=== PATIENT | female | born 1960 | race Caucasian/White ===

== ENCOUNTER 2021-09-28 22:34 | Inpatient (IN) | payer OTHER, SELFPAY ==
--- NOTE | ~2021-09-28 | XR_ITS ---
EXAMINATION: XR CHEST CLINICAL INFORMATION: Syncopal episode. COMPARISON: None TECHNIQUE: AP view of the chest was obtained. FINDINGS: Normal cardiomediastinal silhouette. Low lung volumes with mild asymmetric elevation of the right hemidiaphragm and right basilar subsegmental atelectasis. Otherwise, clear lungs. No pleural effusions or pneumothorax. No acute osseous findings. XR/XR chest 1V IMPRESSION: Mild subsegmental atelectasis of the right lung base.
[2021-09-28 22:43] VITALS: BP 115/90; BP 147/61; PULSE 102; PULSE 108; RESP 18; TEMP 37.2; O2SAT 95; O2SAT 96; BMI 35.2
[2021-09-28 23:39] LABS: Basophils Percent Auto 0.3 % (0-2); Eosinophils Absolute Auto 0.1 X10*3/uL (0.0-0.4); Eosinophils Percent Auto 0.8 % (0-4); Hematocrit 32.4 % (37.0-47.0); Hemoglobin 10.7 g/dl (12.0-16.0); Imm Gran Abs Auto 0.06 X10*3/uL (0.00-0.03); Imm Gran Pct Auto 0.5 % (0.0-0.4); Lymphocytes Absolute Auto 2.7 X10*3/uL (1.2-4.9); Lymphocytes Percent Auto 23.3 % (20-40); MANUAL DIFF FLAG NO; Mean Corpuscular Hemoglobin 30.6 pg (27.0-33.0); Mean Corpuscular Volume 92.6 fL (80.0-98.0); Mean Platelet Volume 9.5 fL (9.4-12.3); Monocytes Absolute Auto 0.8 X10*3/uL (0.1-1.2); Monocytes Percent Auto 7.2 % (2-11); Neutrophils Percent Auto 67.9 % (45-73); Platelet Count 232 X10*3/uL (160-400); Red Cell Distribution Width 12.6 % (11.0-16.0); White Blood Count 11.7 X10*3/uL (4.8-10.8)
[2021-09-28 23:55] LABS: Anion Gap 13 (12-20); Blood Urea Nitrogen 46 mg/dL (9-16); Calcium 8.3 mg/dL (8.4-10.2); Carbon Dioxide 22 mmol/L (22-29); Chloride 109 mmol/L (96-108); Creatinine Clr Calc Pharmacy 104.9; Estimated Glomerular Filt Rate > 60; Glucose Random 118 mg/dL (60-115); Potassium 4.4 mmol/L (3.3-5.1); Sodium 140 mmol/L (135-145)
--- NOTE | 2021-09-29 | ECG_ITS ---
Test Reason : SYNCOPE Blood Pressure : / mmHG Vent. Rate : 104 BPM Atrial Rate : 104 BPM P-R Int : 158 ms QRS Dur : 090 ms QT Int : 364 ms P-R-T Axes : 042 -08 015 degrees QTc Int : 478 ms Sinus tachycardia Otherwise normal ECG No previous ECGs available Referred By: Grace Floyd Electronically Signed By:MARRY OTT
[2021-09-29 00:01] LABS: Troponin-I High Sensitivity 21.6 ng/L (<3.5-17.0)
[2021-09-29 00:58] VITALS: BP 100/58; PULSE 102; RESP 25; TEMP 37; O2SAT 96
--- NOTE | 2021-09-29 01:33 | ED.GENADULT ---
HPI - General Adult General Chief complaint: Syncope Stated complaint: SYNCOPAL EPISODE Time Seen by Provider: 09/29/21 00:03 Source: patient and family (Daughter, Leslie) Mode of arrival: EMS Limitations: language barrier (Azerbaijani speaking, hourly sign language interpreter used) History of Present Illness HPI narrative: 7-year-old female who presents emergency department for evaluation of syncopal episode. The patient reports that she was having acid reflux symptoms all day. She states she is having a burning sensation in her upper abdomen in her chest. She states she would also have hot flash like sensations. She felt hot and cold throughout the day. She states that prior to coming to the emergency department she developed nausea and went to the bathroom to vomit. She states she had 1 episode of vomiting, she felt very hot and lightheaded and she tried to get back to her bedroom and had a syncopal episode. The apparently found the patient on the floor altered for approximately 1-2 minutes, the patient then woke up and was slightly confused but then return to normal. The patient states that she has not been feeling well over the past week, she has had some shortness of breath but denied chest pain, neck pain, jaw pain or arm pain. The patient denied fever, chills, cough, rhinorrhea, sore throat, abdominal pain, change in bowel movements. She did get her Pfizer 3rd shot booster vaccination yesterday. At the time of my evaluation she had no complaints. Related Data Allergies Allergy/AdvReac Type Severity Reaction Status Date / Time No Known Allergies Allergy Verified 09/29/21 01:32 Review of Systems Review of Systems: Yes all other systems are reviewed and are negative [facility] Past Medical History [facility] Narrative: Past medical history high cholesterol, hypothyroidism and seizure disorder. Past surgical history: None. Social history: She smokes 1 cigarette per week. She denies alcohol use. She denies drug use. Social History Social History Advance Directives: No Advance Directives Information Provided: No Physical Exam Vital Signs: Vital Signs: Last Vital Signs Temp 98.5 F 09/29/21 03:30 Pulse 99 09/29/21 03:30 Resp 23 H 09/29/21 03:30 BP 116/65 09/29/21 03:30 Pulse Ox 98 09/29/21 03:35 BMI result Body Mass Index 35.2 Const: Other: Very pleasant and cooperative female patient, answers all questions appropriately, does not appear to be in distress. HENMT: Head: Yes normal to inspection, Yes normocephalic and Yes atraumatic Ears: external ears normal General nose exam: Normal external nose present Face and sinus: Yes normal facial exam Mouth: Normal oral and palatal mucosa present Throat: Yes posterior oropharynx normal Eyes: General: appearance normal, both eyes and all related structures Pupils: Equal, round and reactive pupils present Neck: Neck: Yes normal visual inspection, Yes no lymphadenopathy, Yes trachea midline and Yes supple Chest: Chest palpation & inspection: normal inspection of the chest and normal palpation of entire chest wall Resp: Effort & Inspection: normal respiratory effort and able to speak in complete sentences Auscultation: clear to auscultation bilaterally Cardio: Rate: regular rate Rhythm: regular rhythm Heart sounds: S1 normal heart sound present, S2 normal heart sound present and no murmurs GI: Inspection: Yes normal to inspection Palpation (GI): Soft to palpation, nontender and no guarding Auscultation: normal bowel sounds : General: Yes no CVA tenderness Back/Spine/Pelvis: Back: no CVA tenderness Skin: General skin exam: no rashes or lesions noted Neuro: Cranial nerves: Yes CN's II-XII intact bilaterally and Yes Equal, round and reactive pupils present Cognition (Neuro): normal cognition Motor exam (neuro): 5/5 motor strength present throughout Extrem: General: Yes normal to inspection Psych: Appearance: grossly normal Speech and movement: Normal speech and movement present Affect: normal affect Attitude: cooperative Thought process: Normal thought process present Thought content: Normal thought content present Course Course Course Narrative: 61-year-old female who presents emergency department for evaluation syncopal episode that occurred after she vomited at home. Patient states that she has been feeling sick for 1 week with shortness of breath. She also had heartburn like symptoms yesterday. Vital signs revealed elevated blood pressure of 146/61, elevated pulse of 102, respiratory rate was initially 18, she did have a documented respiratory rate of 25, O2 saturation was 95% on room air. Physical examination was unremarkable. 0139: Laboratory evaluation: WBC elevated 11,700, H&H were low 10.7 and 32.2, chloride was elevated 109, BUN is elevated 46 with a normal creatinine of 0.7. Troponin was elevated 21.6. Twelve EKG revealed a sinus tachycardia with a rate of 104 otherwise was unremarkable. Chest x-ray revealed atelectasis at the right base. Laboratory evaluation is consistent with mild anemia and dehydration. Patient's syncopal episode is most likely vasovagal. The patient did have a mildly elevated high sensitivity troponin. order a D-dimer, PT/INR and repeat troponin for 2:30 a.m.. Patient will be kept on a monitoring manager. 0344: The patient did have a greater than 50% increase in her high sensitivity troponin I at 3:00 a.m.. Initial was 21.6, repeat was 35.3. At this time I am concerned that the patient's shortness of breath dyspnea on exertion syncope may be secondary to coronary artery disease. I will discuss the patient's presentation with the covering hospitalist for admission and further evaluation. 0507: I discuss the patient's presentation with the covering hospitalist, Dr. Toussaint who agrees with admission and will evaluate the patient in the emergency department. Medical Decision Making Lab Data Result diagrams: 09/28/21 23:26 09/28/21 23:26 Labs: Lab Results 09/28/21 09/28/21 09/28/21 Range/Units 23:26 23:26 23:26 WBC 11.7 H (4.8-10.8) X10*3/uL RBC 3.50 L (4.20-5.50) X10*6/uL Hgb 10.7 L (12.0-16.0) g/dl Hct 32.4 L (37.0-47.0) % MCV 92.6 (80.0-98.0) fL MCH 30.6 (27.0-33.0) pg MCHC 33.0 (31.0-35.0) g/dl RDW 12.6 (11.0-16.0) % Plt Count 232 (160-400) X10*3/uL MPV 9.5 (9.4-12.3) fL Immature Gran % (Auto) 0.5 H (0.0-0.4) % Neut % (Auto) 67.9 (45-73) % Lymph % (Auto) 23.3 (20-40) % [place] % (Auto) 7.2 (2-11) % Eos % (Auto) 0.8 (0-4) % Baso % (Auto) 0.3 (0-2) % Lymph # (Auto) 2.7 (1.2-4.9) X10*3/uL [place] # (Auto) 0.8 (0.1-1.2) X10*3/uL Eos # (Auto) 0.1 (0.0-0.4) X10*3/uL Baso # (Auto) 0.0 (0.0-0.2) X10*3/uL Abs Immat Gran (auto) 0.06 H (0.00-0.03) X10*3/uL Absolute Neuts (auto) 8.0 (2.0-8.3) x10*3/uL Absolute Nucleated RBC 0.000 (0.0-0.012) X10*3/uL Nucleated RBC % (auto) 0.0 (0.0-0.2) /100WBC PT (9.9-13.0) SEC INR (0.9-1.1) APTT (24.1-38.0) SEC D-Dimer High Sensitivty NG/ML Sodium 140 (135-145) mmol/L Potassium 4.4 (3.3-5.1) mmol/L Chloride 109 H (96-108) mmol/L Carbon Dioxide 22 (22-29) mmol/L Anion Gap 13 (12-20) BUN 46 H (9-16) mg/dL Creatinine 0.70 (0.5-1.4) mg/dL Estim Creat Clear Calc 104.9 Estimated GFR > 60 Random Glucose 118 H (60-115) mg/dL Calcium 8.3 L (8.4-10.2) mg/dL Troponin I High Sens 21.6 H (<3.5-17.0) ng/L 09/29/21 09/29/21 Range/Units 02:38 02:38 WBC (4.8-10.8) X10*3/uL RBC (4.20-5.50) X10*6/uL Hgb (12.0-16.0) g/dl Hct (37.0-47.0) % MCV (80.0-98.0) fL MCH (27.0-33.0) pg MCHC (31.0-35.0) g/dl RDW (11.0-16.0) % Plt Count (160-400) X10*3/uL MPV (9.4-12.3) fL Immature Gran % (Auto) (0.0-0.4) % Neut % (Auto) (45-73) % Lymph % (Auto) (20-40) % [place] % (Auto) (2-11) % Eos % (Auto) (0-4) % Baso % (Auto) (0-2) % Lymph # (Auto) (1.2-4.9) X10*3/uL [place] # (Auto) (0.1-1.2) X10*3/uL Eos # (Auto) (0.0-0.4) X10*3/uL Baso # (Auto) (0.0-0.2) X10*3/uL Abs Immat Gran (auto) (0.00-0.03) X10*3/uL Absolute Neuts (auto) (2.0-8.3) x10*3/uL Absolute Nucleated RBC (0.0-0.012) X10*3/uL Nucleated RBC % (auto) (0.0-0.2) /100WBC PT 12.4 (9.9-13.0) SEC INR 1.1 (0.9-1.1) APTT 28.0 (24.1-38.0) SEC D-Dimer High Sensitivty 173 NG/ML Sodium (135-145) mmol/L Potassium (3.3-5.1) mmol/L Chloride (96-108) mmol/L Carbon Dioxide (22-29) mmol/L Anion Gap (12-20) BUN (9-16) mg/dL Creatinine (0.5-1.4) mg/dL Estim Creat Clear Calc Estimated GFR Random Glucose (60-115) mg/dL Calcium (8.4-10.2) mg/dL Troponin I High Sens 35.3 H D (<3.5-17.0) ng/L ECG Data Attestation: I personally reviewed and interpreted this ECG as follows: Interpretation: 2333 : Sinus tachycardia with a rate of 104, normal MS interval QRS duration slightly prolonged QTC interval 470 milliseconds, no ST segment elevation, no ST segment depression, inverted T-wave in lead 3, no PACs, no PVCs, except for the sinus tachycardia this is a normal EKG. Discharge Plan Discharge Patient Disposition: Admitted As Inpatient
[2021-09-29] MEDS: 0.9 % Sodium Chloride 1,000 ML 999 ML IV (02:06)
[2021-09-29 02:58] LABS: INTERNATIONAL NORM RATIO 1.1 (0.9-1.1); Prothrombin Time 12.4 SEC (9.9-13.0)
[2021-09-29 03:00] LABS: D Dimer High Sensitivity 173 NG/ML
[2021-09-29 03:18] LABS: Troponin-I High Sensitivity 35.3 ng/L (<3.5-17.0)
[2021-09-29 03:30] VITALS: BP 116/65; PULSE 99; RESP 23; TEMP 36.9; O2SAT 97
--- NOTE | 2021-09-29 03:32 | PC.NURSE ---
patient has elevated second trop notified
[2021-09-29 03:35] VITALS: O2SAT 98
[2021-09-29] MEDS: Aspirin 325 MG TABLET PO (03:51)
--- NOTE | 2021-09-29 05:25 | PC.NURSE ---
Daughter (NAGA) phone number [phone], patient is sami speaking only
--- NOTE | 2021-09-29 05:30 | P.HPHOSP_ITS ---
History of Present Illness Date of Service: 09/29/21 Chief Complaint: syncope This 61-year-old female past medical history of hypothyroidism, seizure disorder, who presents to the hospital with complaints of syncopal episode. Patient is Khmer speaking and history is obtained with the help of her daughter at bedside. Patient reports that she felt nauseous, diaphoretic, around to the bathroom, vomited, again felt very hot and diaphoretic, and immediately after had a syncopal episode that lasted few seconds. When she came about she was not confused but her family noticed that she was very pale. Patient has also had intermittent midsternal chest pain, pressure-like, mild, nonradiating, occurs spontaneously and resolved spontaneously. Today she had midsternal chest pain that she felt in her back as well although the pain in her back is reproducible with movement. She denies any fever no chills, no palpitations, she reports intermittent shortness of breath on exertion, he has no cough, no abdominal pain, no diarrhea constipation comminuted in his symptoms and no lower extremity edema. On arrival to the ED found to have temp of 98.9?, heart rate of 102, respiratory rate 18, blood pressure 147/61, satting 95% on room air Labs are significant for WBC count 11.7, initial troponin of 21.6 increased to 35.3, chest xray showed subsegmental atelectasis of right lung base Patient will be admitted for further management Review of Systems Review of Systems: Yes all other systems are reviewed and are negative [facility] Medical History (Updated 09/29/21 @ 05:40 by Emmanuelle Toussaint MD) Hyperlipidemia Hypothyroidism Seizure disorder Family History (Updated 09/29/21 @ 05:40 by Emmanuelle Toussaint MD) Mother Coronary artery disease Brother Coronary artery disease Surgical History (Updated 09/29/21 @ 05:40 by Emmanuelle Toussaint MD) No pertinent past surgical history Social History Advance Directives: No Advance Directives Information Provided: No Meds Allergies Allergy/AdvReac Type Severity Reaction Status Date / Time No Known Allergies Allergy Verified 09/29/21 01:32 Home Medications Medication Instructions Recorded Confirmed Last Taken Type albuterol sulfate 90 mcg/actuation INHALATION 09/29/21 09/29/21 09/28/21 History aerosol inhaler carbamazepine 200 mg tablet 200 mg PO 09/29/21 09/28/21 History levothyroxine 100 mcg tablet 1 tab PO DAILY 09/29/21 09/29/21 09/28/21 History pravastatin 80 mg tablet 1 tab PO DAILY 09/29/21 09/29/21 09/28/21 History Physical Exam Vital Signs and Narrative: Vital Signs: Last Vital Signs Temp 98.5 F 09/29/21 03:30 Pulse 99 09/29/21 03:30 Resp 23 H 09/29/21 03:30 BP 116/65 09/29/21 03:30 Pulse Ox 98 09/29/21 03:35 BMI result Body Mass Index 35.2 Const: General: cooperative and no acute distress Orientation/consciousness: patient oriented x3 Eyes: General: appearance normal, both eyes and all related structures Resp: Other: No reproducible chest wall tenderness Effort & Inspection: normal respiratory effort Auscultation: clear to auscultation bilaterally Cardio: Rate: regular rate Rhythm: regular rhythm GI: Palpation (GI): Soft to palpation Auscultation: normal bowel sounds Skin: General skin exam: no rashes or lesions noted Neuro: General: patient oriented x3 Cognition (Neuro): normal cognition Extrem: General: Yes normal to inspection and Yes no pedal edema Results Labs CBC and Chem 7: 09/28/21 23:26 09/28/21 23:26 Labs: Laboratory Results - last 24 hr 09/28/21 09/28/21 09/28/21 23:26 23:26 23:26 MCV 92.6 MCH 30.6 MCHC 33.0 RDW 12.6 Plt Count 232 MPV 9.5 Immature Gran % (Auto) 0.5 H Neut % (Auto) 67.9 Lymph % (Auto) 23.3 [place] % (Auto) 7.2 Eos % (Auto) 0.8 Baso % (Auto) 0.3 Lymph # (Auto) 2.7 [place] # (Auto) 0.8 Eos # (Auto) 0.1 Baso # (Auto) 0.0 Abs Immat Gran (auto) 0.06 H Absolute Neuts (auto) 8.0 Absolute Nucleated RBC 0.000 Nucleated RBC % (auto) 0.0 PT INR APTT D-Dimer High Sensitivty Anion Gap 13 Estim Creat Clear Calc 104.9 Estimated GFR > 60 Random Glucose 118 H Calcium 8.3 L Troponin I High Sens 21.6 H 09/29/21 09/29/21 02:38 02:38 MCV MCH MCHC RDW Plt Count MPV Immature Gran % (Auto) Neut % (Auto) Lymph % (Auto) [place] % (Auto) Eos % (Auto) Baso % (Auto) Lymph # (Auto) [place] # (Auto) Eos # (Auto) Baso # (Auto) Abs Immat Gran (auto) Absolute Neuts (auto) Absolute Nucleated RBC Nucleated RBC % (auto) PT 12.4 INR 1.1 APTT 28.0 D-Dimer High Sensitivty 173 Anion Gap Estim Creat Clear Calc Estimated GFR Random Glucose Calcium Troponin I High Sens 35.3 H D Imaging Radiologist's Impressions: Impressions Chest X-Ray 09/28/21 23:52 IMPRESSION: Mild subsegmental atelectasis of the right lung base. Assessment and Plan (1) Syncope: Status: Acute (2) Chest pain: Status: Acute This is a 61-year-old female with past medical history of hypothyroidism, seizure disorder and hyperlipidemia presents the hospital syncopal episode # syncope - most likely vasovagal from the description, - had prodromal symptoms - will obtain orthostatic vitals - monitor on telemetry - echocardiogram # chest pain - possibly cardia - does have elevated troponin - will trend troponin, obtain echocardiogram, and consult Cardiology - admit to telemetry # dyspnea - no evidence of volume overload on exam - chest x-ray no - no pneumonia - will obtain BNP - echocardiogram # have seizure disorder - pending review of her seizure medication # hyperlipidemia - continue statin # hypothyroidism - continue levothyroxine DVT prophylaxis: Lovenox Quality Stroke Does the patient have a stroke diagnosis?: No VTE Prior VTE?: No VTE Risk Level:: Medical - moderate - high VTE Device Contraindication: Treatment Not Indicated VTE Drug Contraindication: N/A - Med Ordered
[2021-09-29] MEDS: Enoxaparin Sodium 40 MG/0.4 ML SYRINGE SUBCUT (05:58)
[2021-09-29 06:18] LABS: COVID-19 Test Negative (Negative)
[2021-09-29 07:28] LABS: MANUAL DIFF FLAG NO
[2021-09-29 07:30] LABS: Basophils Percent Auto 0.2 % (0-2); Eosinophils Percent Auto 0.4 % (0-4); Hematocrit 29.7 % (37.0-47.0); Hemoglobin 9.9 g/dl (12.0-16.0); Imm Gran Abs Auto 0.05 X10*3/uL (0.00-0.03); Imm Gran Pct Auto 0.5 % (0.0-0.4); Lymphocytes Absolute Auto 3.6 X10*3/uL (1.2-4.9); Lymphocytes Percent Auto 38.1 % (20-40); Mean Corpuscular HGB Conc 33.3 g/dl (31.0-35.0); Mean Corpuscular Hemoglobin 30.4 pg (27.0-33.0); Mean Corpuscular Volume 91.1 fL (80.0-98.0); Mean Platelet Volume 9.6 fL (9.4-12.3); Monocytes Absolute Auto 0.6 X10*3/uL (0.1-1.2); Monocytes Percent Auto 6.2 % (2-11); Neutrophils Absolute Auto 5.2 x10*3/uL (2.0-8.3); Neutrophils Percent Auto 54.6 % (45-73); Platelet Count 225 X10*3/uL (160-400); Red Blood Count 3.26 X10*6/uL (4.20-5.50); Red Cell Distribution Width 12.7 % (11.0-16.0); White Blood Count 9.5 X10*3/uL (4.8-10.8)
[2021-09-29 07:46] LABS: Anion Gap 11 (12-20); Blood Urea Nitrogen 36 mg/dL (9-16); Calcium 8.1 mg/dL (8.4-10.2); Carbon Dioxide 21 mmol/L (22-29); Chloride 112 mmol/L (96-108); Creatinine Clr Calc Pharmacy 116.5; Estimated Glomerular Filt Rate > 60; Glucose Random 114 mg/dL (60-115); Potassium 4.1 mmol/L (3.3-5.1); Sodium 140 mmol/L (135-145)
[2021-09-29 07:51] LABS: B Type Natriuretic Peptide 14 pg/mL (<100); Troponin-I High Sensitivity 26.7 ng/L (<3.5-17.0)
--- NOTE | 2021-09-29 08:13 | PM.EVENT ---
Event Note Date of Service: 09/29/21 Event Note: patient already seen by hospital team this morning sa physical exam: Unchanged assessment and plan coordinated in H&P Cardio evaluation
[2021-09-29] MEDS: 0.9 % Sodium Chloride Flush 3 ML SYRINGE IVFLUSH (09:20)
[2021-09-29] MEDS: Levothyroxine Sodium 100 MCG TABLET PO (09:20)
[2021-09-29 09:22] VITALS: BP 137/69; PULSE 97; RESP 16; O2SAT 95
--- NOTE | 2021-09-29 09:34 | PHA.MEDREC ---
MED REC COMPLETE NO ISSUES Pharmacy Consult ? Medication Reconciliation Pharmacy has completed the medication reconciliation.
--- NOTE | 2021-09-29 12:01 | P.CONCA_ITS ---
History of Present Illness History of Present Illness Date of Service: 09/29/21 Requesting physician: Emmanuelle Toussaint Chief complaint: Acute coronary syndrome, syncope Narrative: I was requested to see Regla in cardiology consultation today for syncope. She is a pleasant but Togolese speaking woman, history obtained at bedside with her son who is an excellent furnace hand. If line certified furnace hand. Patient was in usual state of health yesterday, was walking up the stairs and suddenly developed shortness of breath and retrosternal chest pressure radiating to the back. Then she felt nauseous went to the bathroom felt very warm, she vomited and had a bowel movement. She subsequently was not feeling well and started walking towards the room and and then she passed out. She did hit the wall, but says she remembers actually not feeling well and feeling lightheaded was trying to get to the bed. The was downstairs heard the commotion and ran out. She had lost consciousness although for only few seconds and noted that she was pale. She was therefore brought to the emergency room. Since being here she has had no recurrent retrosternal chest pressure. Her initial troponin is minimally elevated and subsequently justine less than 50% but still elevated. Third troponin as down trended. She was noted to be low blood pressure in the nighttime. However blood pressure on presentation was elevated. Her blood pressure currently stable with heart rate in 90s to 100 with minimal exertion. She has had no recurrent chest pain. Her D-dimer was 173. Her initial EKG shows sinus tachycardia without acute changes. She has never had any cardiac issues in the past and has never had syncope in the past. She has not had any exertional chest pain or evidence of myocardial infarction or coronary artery disease in past. 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 Review of Systems Constitutional: Constitutional: Reports no additional constitutional complaints Eyes: Eyes: Reports no additional eye complaints Cardiovascular: Cardiovascular: Reports chest pain with activity, Denies leg edema, Reports lightheadedness, Reports Loss of Consciousness, Denies palpitations and Reports dyspnea on exertion Respiratory: Respiratory: Reports no additional respiratory complaints and Reports dyspnea on exertion Gastrointestinal: Gastrointestinal: Reports no additional gastrointestinal complaints Genitourinary: Genitourinary: Reports no additional female genitourinary complaints Musculoskeletal: Musculoskeletal: Reports no additional musculoskeletal complaints Integumentary/Breasts: Skin/Breast: Reports system reviewed and no additional complaints, except as docu Neurologic: Reports system reviewed and no additional complaints, except as documented Psychiatric: Psychiatric: Reports no additional psychiatric complaints Endocrine: Endocrine: Reports no additional endocrine complaints and Denies palpitations Hematologic/Lymphatic: Hematologic/Lymphatic: Reports no additional hematologic/lymphatic complaints Allergic/Immunologic: Allergic/Immunologic: Reports no additional allergic/immunologic complaints [facility] Past Medical History Medical History (Updated 09/29/21 @ 12:08 by Morales Clements MD) Hyperlipidemia Hypothyroidism Seizure disorder Family History Family History (Updated 09/29/21 @ 05:40 by Emmanuelle Toussaint MD) Mother Coronary artery disease Brother Coronary artery disease Surgical History Surgical History (Updated 09/29/21 @ 05:40 by Emmanuelle Toussaint MD) No pertinent past surgical history Social History Social History Advance Directives: No Advance Directives Information Provided: No Meds Allergies Allergy/AdvReac Type Severity Reaction Status Date / Time No Known Allergies Allergy Verified 09/29/21 01:32 Active Medications: Current Medications Acetaminophen (Acetaminophen 325 Mg Tablet) 650 mg PO Q6H PRN PRN Reason: Pain, Mild (Pain Scale 1-3) Docusate Sodium (Docusate Sodium 100 Mg Capsule) 100 mg PO DAILY PRN PRN Reason: Constipation Enoxaparin Sodium (Enoxaparin Sodium 40 Mg/0.4 Ml Syringe) 40 mg SUBCUT Q24H [facility] Last Admin: 09/29/21 05:58 Dose: 40 mg Documented by: Levothyroxine Sodium (Levothyroxine Sodium 100 Mcg Tablet) 100 mcg PO DAILY [facility] Last Admin: 09/29/21 09:20 Dose: 100 mcg Documented by: Metoprolol Tartrate (Metoprolol Tartrate 25 Mg Tablet) 25 mg PO BID [facility]; Protocol Omeprazole (Omeprazole 20 Mg Capsule.Dr) 20 mg PO BID@0630,1630 [facility] Ondansetron HCl (Ondansetron Hcl 4 Mg/2 Ml Vial) 4 mg IVPUSH Q8H PRN PRN Reason: Nausea and Vomiting Ondansetron HCl (Ondansetron Hcl 4 Mg/2 Ml Vial) 4 mg IVPUSH Q4H PRN PRN Reason: Nausea Pravastatin Sodium (Pravastatin Sodium 80 Mg Tablet) 80 mg PO DAILY [facility] Last Admin: 09/29/21 09:39 Dose: Not Given Documented by: Sodium Chloride (0.9 % Sodium Chloride Flush 3 Ml Syringe) 3 ml IVFLUSH QSHIFT [facility] Last Admin: 09/29/21 09:20 Dose: 3 ml Documented by: Home Medications Medication Instructions Recorded Confirmed Last Taken Type albuterol sulfate 90 mcg/actuation 90 mcg INHALATION Q4H PRN 09/29/21 09/29/21 Unknown History aerosol inhaler (ProAir HFA) carbamazepine 200 mg tablet 200 mg PO TID 09/29/21 09/29/21 09/28/21 History levothyroxine 100 mcg tablet 1 tab PO DAILY 09/29/21 09/29/21 09/28/21 History pravastatin 80 mg tablet 1 tab PO DAILY 09/29/21 09/29/21 09/28/21 History Physical Exam Vital Signs: Vital Signs: Last Vital Signs Temp 98.5 F 09/29/21 03:30 Pulse 97 09/29/21 09:22 Resp 16 09/29/21 09:22 BP 137/69 09/29/21 09:22 Pulse Ox 95 09/29/21 09:22 BMI result Body Mass Index 35.2 Const: General: cooperative, comfortable, no acute distress, alert, awake and other ([place]) Nutritional Appearance: obese Limitations: no limitations HENMT: Head: Yes normocephalic and Yes atraumatic Neck: Neck: Yes trachea midline, Yes supple and Yes no JVD Chest: Chest palpation & inspection: normal inspection of the chest Resp: Effort & Inspection: normal respiratory effort Auscultation: clear to auscultation bilaterally Cardio: Jugular venous distension: no JVD Palpation: normal PMI Rate: regular rate Rhythm: regular rhythm Heart sounds: S1 normal heart sound present, S2 normal heart sound present, no click, no gallops, no murmurs and no rubs GI: Inspection: Yes obesity Auscultation: normal bowel sounds Skin: General skin exam: no rashes or lesions noted Neuro: General: no focal motor deficits Extrem: General: Yes no clubbing, cyanosis or edema Psych: Appearance: grossly normal Objective Labs and Meds Result diagrams: 09/29/21 07:04 09/29/21 07:04 Lab results: Laboratory Results - last 24 hr 09/28/21 09/28/21 09/28/21 23:26 23:26 23:26 WBC 11.7 H RBC 3.50 L Hgb 10.7 L Hct 32.4 L MCV 92.6 MCH 30.6 MCHC 33.0 RDW 12.6 Plt Count 232 MPV 9.5 Immature Gran % (Auto) 0.5 H Neut % (Auto) 67.9 Lymph % (Auto) 23.3 [place] % (Auto) 7.2 Eos % (Auto) 0.8 Baso % (Auto) 0.3 Lymph # (Auto) 2.7 [place] # (Auto) 0.8 Eos # (Auto) 0.1 Baso # (Auto) 0.0 Abs Immat Gran (auto) 0.06 H Absolute Neuts (auto) 8.0 Absolute Nucleated RBC 0.000 Nucleated RBC % (auto) 0.0 PT INR APTT D-Dimer High Sensitivty Sodium 140 Potassium 4.4 Chloride 109 H Carbon Dioxide 22 Anion Gap 13 BUN 46 H Creatinine 0.70 Estim Creat Clear Calc 104.9 Estimated GFR > 60 Random Glucose 118 H Calcium 8.3 L Troponin I High Sens 21.6 H B-Natriuretic Peptide COVID-19 ([facility]) COVID-[facility] 09/29/21 09/29/21 09/29/21 02:38 02:38 05:57 WBC RBC Hgb Hct MCV MCH MCHC RDW Plt Count MPV Immature Gran % (Auto) Neut % (Auto) Lymph % (Auto) [place] % (Auto) Eos % (Auto) Baso % (Auto) Lymph # (Auto) [place] # (Auto) Eos # (Auto) Baso # (Auto) Abs Immat Gran (auto) Absolute Neuts (auto) Absolute Nucleated RBC Nucleated RBC % (auto) PT 12.4 INR 1.1 APTT 28.0 D-Dimer High Sensitivty 173 Sodium Potassium Chloride Carbon Dioxide Anion Gap BUN Creatinine Estim Creat Clear Calc Estimated GFR Random Glucose Calcium Troponin I High Sens 35.3 H D B-Natriuretic Peptide COVID-19 ([facility]) Negative COVID-[employer] Com See Note 09/29/21 09/29/21 09/29/21 07:04 07:04 07:04 WBC 9.5 RBC 3.26 L Hgb 9.9 L Hct 29.7 L MCV 91.1 MCH 30.4 MCHC 33.3 RDW 12.7 Plt Count 225 MPV 9.6 Immature Gran % (Auto) 0.5 H Neut % (Auto) 54.6 Lymph % (Auto) 38.1 [place] % (Auto) 6.2 Eos % (Auto) 0.4 Baso % (Auto) 0.2 Lymph # (Auto) 3.6 [place] # (Auto) 0.6 Eos # (Auto) 0.0 Baso # (Auto) 0.0 Abs Immat Gran (auto) 0.05 H Absolute Neuts (auto) 5.2 Absolute Nucleated RBC 0.000 Nucleated RBC % (auto) 0.0 PT INR APTT D-Dimer High Sensitivty Sodium 140 Potassium 4.1 Chloride 112 H Carbon Dioxide 21 L Anion Gap 11 L BUN 36 H Creatinine 0.63 Estim Creat Clear Calc 116.5 Estimated GFR > 60 Random Glucose 114 Calcium 8.1 L Troponin I High Sens 26.7 H B-Natriuretic Peptide 14 COVID-19 ([facility]) COVID-19 Clin Com Imaging Radiologist's impression: Impressions Chest X-Ray 09/28/21 23:52 IMPRESSION: Mild subsegmental atelectasis of the right lung base. Assessment and Plan (1) Acute coronary syndrome: Status: Acute Patient's initial symptoms of exertional chest pain and shortness of breath, sudden-onset are most suggestive acute coronary syndrome. This led to vasovagal syncope. See below. She is noted to be mildly anemic all the stable. She has had no recent bleeding issues. Does not recall her prior hematocrit, done more than a year ago with her primary care physician. No active signs of bleeding. Will start her treatment with IV heparin and trend hematocrit. Start her on low-dose metoprolol as well as aspirin. Also start on high-intensity statin therapy. Discussed management of acute coronary syndrome, given her generally good health and strong family history multiple risk factor should undergo cardiac catheterization to further evaluate her coronary anatomy. Further treatment based on the finding of the coronary anatomy. This was discussed with her. We discussed the procedure including risk, benefits, alternatives 2nd open to procedure. She understands agrees. Have call [facility] to make arrangements for transfer. She and her son who was present at bedside at all times agreeable. (2) Vasovagal syncope: Status: Acute Her syncopal episode historically appears to be vasovagal in nature. This is most likely induced by her acute coronary syndrome and acute distress associated with acute coronary syndrome. She generally does not hydrate herself well by your oral route. We discussed about vasovagal mechanism with reflex activation of mechanical receptors. She showed some understanding. She has never had prior issues. Management with driven by her primary acute coronary syndrome 1st. Would hydrate her gently. Beta-blockers as above for acute coronary syndrome. There is no obvious bleeding noted, will follow hematocrit closely. Will follow with her. Procedures Date of Service Date of Service: 09/29/21
--- NOTE | 2021-09-29 12:07 | P.DS_ITS ---
DS: Providers Provider Date of Service: 09/29/21 Date of admission: 09/29/21 05:29 Primary care physician: Willian Farley MD Consults: 09/29/21 05:40 Consult to Cardiology Routine Consulting Provider: Morales Clements Reason for consultation: elevated trop, chest pain Has provider been notified: No DS: Diagnosis Discharge Diagnosis (1) Syncope: Status: Acute (2) Chest pain: Status: Acute DS: Summary Hospital Course Hospital Course: 61-year-old female past medical history of hypothyroidism, seizure disorder, who presents to the hospital with complaints of syncopal episode.? Patient is Ethiopian speaking and history is obtained with the help of her daughter at bedside.? Patient reports that she felt nauseous, diaphoretic, around to the bathroom, vomited, again felt very hot and diaphoretic, and immediately after had a syncopal episode that lasted few seconds.? When she came about she was not confused but her family noticed that she was very pale.? Patient has also had intermittent midsternal chest pain, pressure-like, mild, nonradiating, occurs spontaneously and resolved spontaneously.? Today she had midsternal chest pain that she felt in her back as well although the pain in her back is reproducible with movement. She denies any fever no chills, no palpitations, she reports intermittent shortness of breath on exertion, he has no cough, no abdominal pain, no diarrhea constipation comminuted in his symptoms and no lower extremity edema. On arrival to the ED found to have temp of 98.9?, heart rate of 102, respiratory rate 18, blood pressure 147/61, satting 95% on room air Labs are significant for WBC count 11.7, initial troponin of 21.6 increased to 35.3, chest xray showed subsegmental atelectasis of right lung base. Hospital course: patient came to hospital because of chest pain, intermittent shortness of breath with exertion, possible syncope: she was found to have mildly elevated troponin . Patient was seen by Cardiology thought to be possible unstable angina: Patient was started on aspirin, heparin drip, continue beta-gadiel and statin: patient will be going to [facility] for further management including cardiac cath. Further management and workup will be done in [facility]. syncope -unclear etiology possible vasovagal -follow up with cardiology in [facility]. anemia normocytic: H&H is around 10, denies any gross history of bleeding, melena or blood in vomitus. monitor CBC and if H&H then may need further workup. Above management discussed with the patient in detail length she understand and in agreement with the above plan, time spent 50 minutes and 50% time spent on counseling. Significant findings: As above. Procedures performed: None. Treatment and response: As above. Complications: None. Time Spent with Patient Time attestation: Total time spent providing and/or coordinating discharge services: Discharge coordination time: Greater than 30 minutes Quality: Stroke Does the patient have a stroke diagnosis?: No Physical Exam Vital Signs: Vital Signs: Last Vital Signs Temp 98.5 F 09/29/21 03:30 Pulse 97 09/29/21 09:22 Resp 16 09/29/21 09:22 BP 137/69 09/29/21 09:22 Pulse Ox 95 09/29/21 09:22 BMI result Body Mass Index 35.2 Appearance: Alert.? Oriented X3.? not in distress.? Eyes: Pupils equal, round and reactive to light.? Sclera nonicteric.? ENT: Pharynx normal.? Moist mucous membranes. cvs: rrr, [id number] , no murmur res: clear to auscultation ,no rhonchii or wheezing abd: no rebound or guarding ,nt, bs present. ext pulses present , no cyanosis ,Gait well balanced well coordinated. neuro: axo3 , nonfocal. DS: Data Data Completed and Pending Labs on day of discharge: Laboratory Results - last 24 hr 09/28/21 09/28/21 09/28/21 23:26 23:26 23:26 WBC 11.7 H RBC 3.50 L Hgb 10.7 L Hct 32.4 L MCV 92.6 MCH 30.6 MCHC 33.0 RDW 12.6 Plt Count 232 MPV 9.5 Immature Gran % (Auto) 0.5 H Neut % (Auto) 67.9 Lymph % (Auto) 23.3 [place] % (Auto) 7.2 Eos % (Auto) 0.8 Baso % (Auto) 0.3 Lymph # (Auto) 2.7 [place] # (Auto) 0.8 Eos # (Auto) 0.1 Baso # (Auto) 0.0 Abs Immat Gran (auto) 0.06 H Absolute Neuts (auto) 8.0 Absolute Nucleated RBC 0.000 Nucleated RBC % (auto) 0.0 PT INR APTT D-Dimer High Sensitivty Sodium 140 Potassium 4.4 Chloride 109 H Carbon Dioxide 22 Anion Gap 13 BUN 46 H Creatinine 0.70 Estim Creat Clear Calc 104.9 Estimated GFR > 60 Random Glucose 118 H Calcium 8.3 L Troponin I High Sens 21.6 H B-Natriuretic Peptide COVID-19 ([facility]) COVID-19 [email or web address] Com 09/29/21 09/29/21 09/29/21 02:38 02:38 05:57 WBC RBC Hgb Hct MCV MCH MCHC RDW Plt Count MPV Immature Gran % (Auto) Neut % (Auto) Lymph % (Auto) [place] % (Auto) Eos % (Auto) Baso % (Auto) Lymph # (Auto) [place] # (Auto) Eos # (Auto) Baso # (Auto) Abs Immat Gran (auto) Absolute Neuts (auto) Absolute Nucleated RBC Nucleated RBC % (auto) PT 12.4 INR 1.1 APTT 28.0 D-Dimer High Sensitivty 173 Sodium Potassium Chloride Carbon Dioxide Anion Gap BUN Creatinine Estim Creat Clear Calc Estimated GFR Random Glucose Calcium Troponin I High Sens 35.3 H D B-Natriuretic Peptide COVID-19 ([facility]) Negative COVID-19 [employer] See Note 09/29/21 09/29/21 09/29/21 07:04 07:04 07:04 WBC 9.5 RBC 3.26 L Hgb 9.9 L Hct 29.7 L MCV 91.1 MCH 30.4 MCHC 33.3 RDW 12.7 Plt Count 225 MPV 9.6 Immature Gran % (Auto) 0.5 H Neut % (Auto) 54.6 Lymph % (Auto) 38.1 [place] % (Auto) 6.2 Eos % (Auto) 0.4 Baso % (Auto) 0.2 Lymph # (Auto) 3.6 [place] # (Auto) 0.6 Eos # (Auto) 0.0 Baso # (Auto) 0.0 Abs Immat Gran (auto) 0.05 H Absolute Neuts (auto) 5.2 Absolute Nucleated RBC 0.000 Nucleated RBC % (auto) 0.0 PT INR APTT D-Dimer High Sensitivty Sodium 140 Potassium 4.1 Chloride 112 H Carbon Dioxide 21 L Anion Gap 11 L BUN 36 H Creatinine 0.63 Estim Creat Clear Calc 116.5 Estimated GFR > 60 Random Glucose 114 Calcium 8.1 L Troponin I High Sens 26.7 H B-Natriuretic Peptide 14 COVID-19 ([facility]) COVID-19 Clin Com Additional Comments Additional comments: ?XR/XR chest 1V IMPRESSION: Mild subsegmental atelectasis of the right lung base. Discharge Plan Discharge Patient Disposition: er [facility] Discharge Diagnosis: unstable angina Referrals: Willian Farley MD [Primary Care Provider] - 1 Week Discharge Medications: New omeprazole 20 mg Capsule,Delayed Release(Dr/Ec) 20 mg PO BID@0630,1630 Qty: 60 RF: 0 metoprolol tartrate 25 mg Tablet 25 mg PO BID Qty: 60 RF: 0 heparin(porcine) in 0.45% NaCl 25,000 unit/250 mL Parenteral Solution 25,000 unit continuous IV infusion .Q0M Qty: 250 RF: 0 aspirin 81 mg capsule 81 mg PO DAILY Qty: 30 RF: 0 Continued levothyroxine 100 mcg tablet 1 tab PO DAILY RF: 0 carbamazepine 200 mg tablet 200 mg PO TID RF: 0 pravastatin 80 mg tablet 1 tab PO DAILY RF: 0 albuterol sulfate [ProAir HFA] 90 mcg/actuation HFA aerosol inhaler 90 mcg inhalation Q4H PRN (Reason: Respiratory Distress) RF: 0 Discharge Orders: Discharge Order (Routine); Ordered 09/29/21 Ordered By: Grace Floyd Diet: advance to usual diet, low fat, low cholesterol and low salt diet Activity on Discharge: As tolerated Stand Alone Forms: Patient Portal Discharge page Care Plan Goals: patient came to hospital because of chest pain, intermittent shortness of breath with exertion, possible syncope: she was found to have mildly elevated troponin . Patient was seen by Cardiology thought to be possible unstable angina: Patient was started on aspirin, heparin drip, continue beta-gadiel and statin: follow pt/ptt per protocol. patient will be going to [facility] for further management including cardiac cath. Further management and workup will be done in [facility]. Health Concerns: As above. Plan of Treatment: As above. Assessment: As above. Discharge Date/Time: 09/29/21 14:37
[2021-09-29 12:25] LABS: Hematocrit 30.5 % (37.0-47.0); Hemoglobin 10.3 g/dl (12.0-16.0); Mean Corpuscular HGB Conc 33.8 g/dl (31.0-35.0); Mean Corpuscular Hemoglobin 31.1 pg (27.0-33.0); Mean Corpuscular Volume 92.1 fL (80.0-98.0); Mean Platelet Volume 9.5 fL (9.4-12.3); Platelet Count 238 X10*3/uL (160-400); Red Blood Count 3.31 X10*6/uL (4.20-5.50); Red Cell Distribution Width 12.8 % (11.0-16.0); White Blood Count 11.2 X10*3/uL (4.8-10.8)
[2021-09-29 12:32] LABS: INTERNATIONAL NORM RATIO 1.1 (0.9-1.1); Prothrombin Time 12.2 SEC (9.9-13.0)
[2021-09-29 12:35] LABS: PTT Heparin Drip 33.9 SEC (53-77.9)
--- NOTE | 2021-09-29 12:47 | PC.NURSE ---
CALL RECEIVED FROM [facility] PT [place] LINE WITH ROOM ASSIGNMENT @ THIS TIME [employer] [id number] WINN ACCEPTING RN TO RN [phone]
--- NOTE | 2021-09-29 13:10 | PC.NURSE ---
@[phone] [facility] CALLED FOR ALS TRAPORT TO [facility] [id number] WITH HEPARIN AND SERVER MANAGER
[2021-09-29 13:23] VITALS: BP 108/55; PULSE 96
[2021-09-29] MEDS: Metoprolol Tartrate 25 MG TABLET PO (13:23)
[2021-09-29] MEDS: Heparin Sodium,Porcine/1/2NS 25,000 UNIT/250 ML IV.SOLN 14.29 UNIT IVCONT (13:25)
--- NOTE | 2021-09-29 13:39 | PC.NURSE ---
Pt continues to deny cp. Heparin started at 14units/kg/hr as ordered. Additional IV inserted, 20 to right hand. Report given to EMS. Attempted to call M3 at [facility] x2 with no answer
--- NOTE | 2021-09-29 14:51 | MHC.CM.PN ---
Female 61 DX R/O ACS Patient has transfered to [facility] via ALS for Cardiac cath. Patient was discharged prior to being seen by Case Management.
== END 2021-09-29 14:37 | disposition short-term general hospital (02) | DRG 311 ==
LOC: HO.ED 09-29 05:08 → HO.EDOVER 09-29 05:33
PROVIDERS: Admitting Provider Internal Medicine; Emergency Provider Emergency Medicine Emergency Medical Services; PCP Internal Medicine; Visit Provider Internal Medicine
DX: I24.9 Acute ischemic heart disease, unspecified (principal); E03.9 Hypothyroidism, unspecified; G40.909 Epilepsy, unspecified, not intractable, without status epilepticus; D64.9 Anemia, unspecified; E78.5 Hyperlipidemia, unspecified; Z20.822 Contact with and (suspected) exposure to COVID-19; Z79.82 Long term (current) use of aspirin; Z79.890 Hormone replacement therapy; Z79.899 Other long term (current) drug therapy
CPT/HCPCS: 36415; 71045; 80048; 83880; 84484; 85025; 85027; 85379; 85610; 85730; 87635; 93005; 96360; 99285; J1650

== ENCOUNTER 2025-09-11 08:45 | Outpatient (AMB) | payer OTHER, SELFPAY ==
--- NOTE | 2025-09-11 08:48 | MHC.OFFVIS ---
Intake Visit Reasons: 1 yr fu Gasoline Pump Mechanic Required: Yes Gasoline Pump Mechanic Services: Gasoline Pump Mechanic Offered & Declined (Family to translate) Accompanied by: Son Allergies No Known Allergies Allergy (Verified 09/11/25 08:51) Medication List - Last Reconciled 09/11/25 by Eliana Garcia CNP albuterol sulfate 90 mcg/actuation (ProAir HFA) 90 mcg inhalation Q4H PRN aspirin 81 mg PO DAILY carbamazepine 200 mg PO TID heparin(porcine) in 0.45% NaCl 25,000 unit/250 mL 25,000 units (250 mL) continuous IV infusion .Q0M levothyroxine 1 tab PO DAILY metoprolol tartrate 25 mg See Protocol PO BID omeprazole 20 mg PO BID@0630,1630 pravastatin 1 tab PO DAILY HPI Comments Details: 65-year-old RH woman with epilepsy. She used to have generalized convulsions but did not have any for number of years. She was doing okay. She was taking carbamazepine three times a day. No medication side effects. No further seizures. Sleep was okay. [facility] Medical History (Updated 09/11/25 @ 08:51 by Eliana Garcia CNP) Hyperlipidemia Seizure disorder Hypothyroidism Surgical History (Updated 09/29/21 @ 05:40 by Emmanuelle Toussaint MD) No pertinent past surgical history Family History (Updated 09/29/21 @ 05:40 by Emmanuelle Toussaint MD) Mother Coronary artery disease Brother Coronary artery disease Review of Systems Const Denies chills, Denies daytime sleepiness, Denies difficulty sleeping, Denies fatigue, Denies fever(s), Denies frequent falls, Denies headache(s), Denies increased appetite, Denies poor appetite, Denies snoring, Denies weakness, Denies weight gain and Denies weight loss Eyes Denies loss of vision ENT Denies vertigo, Denies dizziness and Denies headache(s) Card Denies chest pain at rest, Denies chest pain with activity, Denies syncope, Denies leg edema and Denies palpitations Resp Denies snoring GI Denies constipation, Denies heartburn, Denies diarrhea and Denies nausea Denies urinary frequency, Denies urinary incontinence and Denies urinary urgency Musc Denies abnormal gait, Denies numbness and Denies tingling Skin/Breast Denies dry skin and Denies rash Neuro Denies abnormal gait, Denies vertigo, Denies dizziness, Denies syncope, Denies frequent falls, Denies headache(s), Denies lack of coordination, Denies loss of vision, Denies memory loss, Denies numbness, Denies restless legs, Denies seizure-like activity, Denies tingling, Denies paresthesias, Denies tremor(s) and Denies weakness Psych Denies anxiety, Denies depression, Denies auditory hallucinations, Denies memory loss, Denies visual hallucinations and Denies suicidal ideation Endo Denies fatigue and Denies palpitations Physical Exam Const Other: General Appearance:? normal, in no acute distress. Skin:? no rashes, no significant birthmarks. Heart:? S1, S2 normal, no murmurs. Lungs:? clear anteriorly and posteriorly. Extremities:? no edema. Psych:? alert, oriented, cognitive function intact, cooperative with exam. Neuro Other: Mental Status:?Normal attention, orientation, memory and affect.? Cranial Nerves:?Pupils are equal, round and reactive to light. External occular muscles are intact. Visual [place] are full. Face is symmetrical. Facial sensations are normal. Tongue is midline. Palate elevates symmetrically. Shoulder shrugging is normal. Hearing to bedside conversation is normal. Motor Examination:?DTRs trace to absent. Sensory Exam:?....? Coordination:?No ataxia,?no titubation.? Gait Exam: Within normal limits. Cerebellar Signs:?Vagxov-is-ezta is okay. Extrapyramidal System:?No tremor, rigidity with normal facial expressions.? Pronator Drift:?Not present.? Involuntary Movements:?No tremors seen.? Speech:?Normal.? Results Reviewed Results Reviewed: CT brain WO at [facility] in 2015: mild cortical and ant temp atrophy. Assessment & Plan Assessment & Plan (1) Epilepsy: Code(s): G40.909 - Epilepsy, unspecified, not intractable, without status epilepticus Category: Medical Qualifiers: Epilepsy type: unspecified Intractability: not intractable Status epilepticus: without status epilepticus Qualified Code(s): G40.909 - Epilepsy, unspecified, not intractable, without status epilepticus Plan: Continue carbamazepine 200mg 1 tablet three times a day. Follow up in 1 year or sooner as needed. Medications: Changed From carbamazepine 200 mg PO TID To carbamazepine 200 mg PO TID 270 tabs 3RF 90 days Coding Level of Care Code Est Pt Level 3 (75174) Diagnoses Nonintractable epilepsy without status epilepticus, unspecified epilepsy type G40.909 Epilepsy type: unspecified Intractability: not intractable Status epilepticus: without status epilepticus
--- OUTSIDE RECORDS SUMMARY | 2025-09-11 09:34 | XMS_ITS | Encounter Summary ---
Author Organization [facility] Address [address] [place] [address] Care Team Providers Care Sound System Installer Name Role Phone Willian Farley MD Primary Care Provider [phone] Encounter Details Date Type Department Care Team (Late Contact Info) Description 08/31/2025 Results Follow-Up Internal Medicine - [address] [phone] Mayi Gonzalez MA Social History Tobacco Use Types Packs/Day Years Used Date Smoking Tobacco: Former Cigarettes Smokeless Tobacco: Never Alcohol Use Standard Drinks/Week Comments No 0 (1 standard drink = 0.6 oz pur e alcohol) Interpersonal Safety Answer Date Record ed Physical Abuse Unrecognized value 01/13/2025 Verbal Abuse Unrecognized value 01/13/2025 Comments No Sex and Gender Information Value Date Recorded Sex Assigned at Female 01/13/2025 8:59 AM EDT Legal Sex Female 9:30 AM EST Gender Identity Female 01/13/2025 8:59 AM EDT Sexual Orientation Straight 01/13/2025 8: 59 AM EDT documented as of this encounter Plan of Treatment Upcoming Encounters Date Type Department Care Team (Late Contact Info) Description 10/10/2025 9:00 AM EST Office Visit Internal Medicine - [address] [phone] Willian Farley MD [address] [place] [id number] 11/23/2025 9:00 AM EST Consult Bariatric Surgery - [place] [address] [place] [phone] Josh Colorado MD [address] [place] [phone] documented as of this encounter Visit Diagnoses Not on filedocumented in this encounter Care Teams Sound System Installer Relationship Specialty Start Date End Date Willian Farley MD [address] [place] [phone] PCP - General Internal Medicine 11/14/24 documented as of this encounter
--- OUTSIDE RECORDS SUMMARY | 2025-09-11 09:34 | XMS_ITS | Clinical Summary ---
Author Organization [address] [facility]ly [facility], later [facility] Address [address] [place] [phone] Phone Care Team Providers Care Tubing Machine Tender Name Role Phone Willian Farley MD Primary Care Provider [phone] Allergies No known active allergies Medications albuterol HFA (PROAIR HFA ; PROVENTIL HFA ; VENTOLIN HFA) 90 mcg/actuation inhaler Inhale 2 Puffs into the lungs 4 times daily as needed for Cough, Wheezing or Shortness of Breath. 04/10/20 22 Active carBAMazepine (TEGretol) 200 mg tablet TAKE 1 TABLET BY MOUTH THREE TIMES A DAY 08/21/20 23 Active polyethylene glycol (Golytely) 236-22.74-6.74 -5.86 gram solution Take 4L by mouth once for one dose. May substitue any PEG. Starting at 6PM the night before your procedure drink 1 8oz glasses at your own pace until you complete half of the gallon. Finish 2nd half of the gallon 5 hours before your procedure. 4000 mL 12/31/19 25 Active meloxicam (MOBIC) 15 mg tabletIndicatio ns:Unilateral primary osteoarthritis, left knee TAKE 1 TABLET (15 MG TOTAL) BY MOUTH ONE TIME EACH DAY. 30 tablet 5 02/15/20 25 Active levothyroxine (SYNTHROID, LEVOTHROID) 150 mcg tablet TAKE 1 TABLET BY MOUTH EVERY DAY 90 tablet 08/14/20 25 Active pravastatin (PRAVACHOL) 80 mg tabletIndicatio ns:Hypothyroidi sm, unspecified,Hyp erlipidemia, unspecified TAKE 1 TABLET BY MOUTH EVERY DAY 90 tablet 08/14/20 Active levothyroxine (SYNTHROID, LEVOTHROID) 150 mcg tablet TAKE 1 TABLET BY MOUTH EVERY DAY 90 tablet 1 02/16/20 25 025 Discontinued pravastatin (PRAVACHOL) 80 mg tabletIndicatio ns:Hypothyroidi sm, unspecified,Hyp erlipidemia, unspecified TAKE 1 TABLET BY MOUTH EVERY DAY 90 tablet 05/15/20 25 025 Discontinued Active Problems Problem Noted Date Diagnosed Date 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 pylori infection 01/02/2022 Overview (09/11/2024): EGD 09/30/21 w/ biopsy Duodenal ulcer with hemorrhage 10/29/2021 Overview (09/11/2024): 09/30/21 and 10/01/[place] [facility] [place] COVID-19 09/05/2020 Hyperlipidemia 08/27/2011 Hypothyroidism 08/27/2011 Seizure ([facility]/HCC V24, [facility]/HCC V28) 08/27/2011 Overview (09/11/2024): Post gestational Encounters Date Type Department Care Team Description 09/04/2025 Telephone Internal Medicine - [address] [place] [phone] Willian Farley MD 08/31/2025 10:57 AM EST - 08/31/2025 11:59 PM EST Hospital Encounter Radiology Department - [address] [phone] Encounter for screening mammogram for malignant neoplasm of breast Discharge Disposition: Home or Self Care 08/31/2025 [facility] [address] [place] [phone] Mayi Gonzalez MA from Last 3 Months Immunizations Immunization Administration Dates Next Due Influenza trivalent, 0.5mL, preservative free (Fluarix; FluLaval; Fluzone) ages 6mo and older (Afluria) 3 years and older 08/27/2011 Td Tetanus diptheria (Tdvax) 7yo and older 03/19 Tdap Tetanus diptheria acell ular pertussis (Boostrix; Adacel) 7yo and older 08/27/2011 Surgical History Surgery Date Site/Laterality Comments ESOPHAGOGASTRODUODENOSCOPY 09/30/2021 PROCEDURE: OK ESOPHAGOGASTRODUODENOSCOPY TRANSORAL DIAGNOSTIC; COMMENT: ulcers in antrum and whole stomach and duodenal bulb- epi/cauterized ESOPHAGOGASTRODUODENOSCOPY 10/01/2021 PROCEDURE: OK ESOPHAGOGASTRODUODENOSCOPY TRANSORAL DIAGNOSTIC; COMMENT: duodenal ulcers- cauterized with gold probe Medical History Medical History Date Comments Chronic gastric ulcer withou t hemorrhage and without perforation 01/02/2022 DX:Chronic gastric ulcer without hemorrhage and without perforation Covid-19 09/05/2020 DX:COVID-19 Duodenal ulcer with hemorrhage 10/29/2021 D X:Duodenal ulcer with hemorrhage; COMMENT: 09/30/21 and 10/01/21 [facility] [place] H. pylori infection 01/02/2022 DX:H. pylori infection; COMMENT: EGD 09/30/21 Hyperlipidemia 08/27/2011 DX:Hyperlipidemi a Hypothyroidism 08/27/2011 DX:Hypothyroidis m Seizure (CMS/HCC V24, CMS/HCC V28) 08/27/2011 DX:Seizure (HCC); COMMENT: Post gestational Seizures (CMS/HCC V24, CMS/HCC V28) Family History Medical History Relation Name Comments No Known Problems Brother No Known Problems Daughter No Known Problems Father CABG at 35 No Known Problems Maternal Grandfather No Known Problems Maternal Grandmother No Known Problems Mother No Known Problems Other No Known Problems Paternal Grandfather No Known Problems Paternal Grandmother No Known Problems Sister Breast cancer Neg Hx Relation Name Status Comments Brother Alive Daughter Father Maternal Grandfather Maternal Grandmother Mother Alive Other Paternal Grandfather Paternal Grandmother Sister Alive Social History Tobacco Use Types Packs/Day Years Used Date Smoking Tobacco: Former Cigarettes Smokeless Tobacco: Never Tobacco Cessation:Counseling Given: Not Answered Alcohol Use Standard Drinks/Week Comments No 0 [...] Orientation Straight 01/13/2025 8: 59 AM EDT Obstetrics History Para Term AB IAB SAB Ectopic Multiple Livin g Live Births 3 3 3 3 Date Outcome GA Total Labor Labor/2nd/3rd Weight Sex Type Anes PTL Mikki A1 A5 Name Clin Term Term Term Last Filed Vital Signs Vital Sign Reading Time Taken Comments Blood Pressure 146/88 05/19/2025 1:30 PM EDT Pulse 76 05/19/2025 1:30 PM EDT Temperature 36.7 C (98 F) 05/19/2025 1:30 PM EDT Respiratory Rate 20 01/13/2025 10:43 AM EDT Oxygen Saturation 96% 05/19/2025 1:30 PM EDT Inhaled Oxygen Concentration - - Weight 109 kg (240 lb) 01/13/2025 9:29 AM EDT Height 172.7 cm (5' 8 ) 01/13/2025 9:29 AM EDT Body Mass Index 36.49 01/13/2025 9:29 AM EDT Plan of Treatment Upcoming Encounters Date Type Department Care Team (Late st Contact Info) Description 10/10/2025 9:00 AM EST Office Visit Internal Medicine - [address] [phone] Willian Farley MD [address] [place] [address] 11/23/2025 9:00 AM EST Consult Bariatric Surgery - [place] [address] [place] [phone] Josh Colorado MD [address] [place] [phone] Health Maintenance Due Date Last Done Comments Pneumococcal Vaccine: 50+ Years (1 of 1 - PCV) 2011 Zoster Vaccines (1 of 2) 2011 Cervical Cancer Screening: Pap Smear 11/15/2017 11/15/2014 HIV Screening 09/18/2022 Hepatitis C Screening 09/18/2022 Social Influencers of Health Screening 09/18/2022 Depression Screening 10/12/2024 COVID-19 Vaccine ( season) 2025 09/21/2021, 03/02/2021, 02/09/2021 Influenza Vaccine (#1) 2025 07/15/2017, 2010 Breast Cancer Screening 08/31/2027 08/31/20, 04/26/2024, 04/26/2024, Additional history exists Cholesterol Screening (Lipid Panel) 11/15/2029 11/15/2024, 02/24/2024, 02/24/2024 DTaP,Tdap,and Td Vaccines (3 - Td or Tdap) 03/19/2033 03/19/2023, 08/27/2011 Colorectal Cancer Screening: Colonoscopy 01/13/2035 01/13/2025, 06/20/2022, 06/20/2022 RSV Immunization Adult Patients (1 - 1-dose 75+ series) 2036 HIB Vaccines Aged Out No longer eligi ble based on patient's age to complete this topic HPV Vaccines Aged Out No longer eligi ble based on patient's age to complete this topic Hepatitis A Vaccines Aged Out No long er eligible based on patient's age to complete this topic Hepatitis B Vaccines Aged Out No long er eligible based on patient's age to complete this topic IPV Vaccines Aged Out No longer eligi ble based on patient's age to complete this topic MMR Vaccines Aged Out No longer eligi ble based on patient's age to complete this topic Meningococcal ACWY Vaccine Aged Out N o longer eligible based on patient's age to complete this topic Meningococcal B Vaccine Aged Out No l onger eligible based on patient's age to complete this topic RSV Immunization Patients Under 20 months Aged Out No longer eligible based on patient's age to complete this topic Varicella Vaccines Aged Out No longer eligible based on patient's age to complete this topic Procedures Procedure Name Priority Date/Time Associated Diagnosis Comments MG MAMMO DIGITAL SCREENING W KUSH BILAT Routine 08/31/2025 11:09 AM EST Encounter for screening mammogram for malignant neoplasm of breast COLONOSCOPY Routine 01/13/2025 10:22 AM EDT Personal history of colon polyps, unspecified Encounter for screening for malignant neoplasm of colon LIPID PANEL WITH REFLEX TO DIRECT LDL Routine 11/15/2024 8:53 AM EST Pure hypercholesterolemia HM PAP SMEAR Routine 11/15/2014 from Last 3 Months or Most Recently Relevant to Health Maintenance Results * MG Mammo Digital Screening w Kush bilat (08/31/2025 11:09 AM EST) Anatomical Region Laterality Modality Breast Bilateral Mammography 08/31/2025 4:31 PM EST Impressions 08/31/2025 4:41 PM EST 1. No mammographic evidence of malignancy 2. Scattered fibroglandular tissue BI-RADS CATEGORY: 2 - BENIGN RECOMMENDATION: Screening bilateral mammogram is recommended in 1 year. Mammo Location: [facility], [address] [place] [address], [id number], . -------- FINAL REPORT -------- Dictated By: Avtar Mrashall Dictated Date: 08/31/2025 16:31 ET Assigned Physician: Avtar Marshall Reviewed and Electronically Signed By: Avtar Marshall Signed Date: 08/31/2025 16:41 ET Workstation ID: [id number] Transcribed By: Self Edit Transcribed Date: 08/31/2025 16:31 ET Narrative 08/31/2025 4:41 PM EST A BILATERAL DIGITAL 3D SCREENING MAMMOGRAPHY HISTORY: Routine screening. No family history of breast cancer. COMPARISON: Multiple priors dating back to 04/04/2021 Technique: Bilateral full field digital mammography (3D) was performed using standard CC and MLO projections , bilateral exaggerated cc views CAD was used to evaluate this mammogram. FINDINGS: Right: No suspicious masses, groups of microcalcification or areas of architectural distortion identified. Stable typically benign parenchymal asymmetries. Left: No suspicious masses, groups of microcalcification or areas of architectural distortion identified. Stable typically benign parenchymal asymmetries. BREAST DENSITY: B - There are scattered areas of fibroglandular density. Procedure Note Avtar Marshall MD - 08/31/2025 A BILATERAL DIGITAL 3D SCREENING MAMMOGRAPHY HISTORY: Routine screening. No family history of breast cancer. COMPARISON: Multiple priors dating back to 04/04/2021 Technique: Bilateral full field digital mammography (3D) was performedusing standard CC and MLO projections , bilateral exaggerated cc views CAD was used to evaluate this mammogram. FINDINGS: Right: No suspicious masses, groups of microcalcification or areas ofarchitectural distortion identified. Stable typically benign parenchymalasymmetries. Left: No suspicious masses, groups of microcalcification or areas ofarchitectural distortion identified. Stable typically benign parenchymalasymmetries. BREAST DENSITY: B - There are scattered areas of fibroglandular density. IMPRESSION: 1. No mammographic evidence of malignancy 2. Scattered fibroglandular tissue BI-RADS CATEGORY: 2 - BENIGN RECOMMENDATION: Screening bilateral mammogram is recommended in 1 year. Mammo Location: [facility], [address] [place] [address], [id number], . -------- FINAL REPORT -------- Dictated By: Avtar Marshall Dictated Date: 08/31/2025 16:31 ET Assigned Physician: Avatr Marshall Reviewed and Electronically Signed By: Avtar Marshall Signed Date: 08/31/2025 16:41 ET Workstation ID: [id number] Transcribed By: Self Edit Transcribed Date: 08/31/2025 16:31 ET us Willian Farley MD IMG BI PROCEDURES Final Result * COLONOSCOPY Anesthesia - MAC; [facility] ENDOSCOPY (01/13/2025 10:22 AM EDT) Anatomical Region Laterality Modality Other 01/13/2025 9:58 AM EDT Impressions 01/13/2025 10:22 AM EDT - One 5 mm polyp at the hepatic flexure, removed with a cold snare. Resected and retrieved. - Non-bleeding internal hemorrhoids. - The examination was otherwise normal on direct and retroflexion views. Recommendation: - Discharge patient to home. - Resume previous diet. - Continue present medications. - Await pathology results. - Repeat colonoscopy for surveillance based on pathology results. - Return to GI office PRN. Narrative 01/13/2025 10:22 AM EDT [facility] GI Patient Name: Gilda Headley Procedure Date: 01/13/2025 9:58 AM Date of : 1960 Age: 64 Room: ROOM 14 Gender: Female Note Status: Finalized Attending MD: Jamie Lara MD, Procedure Date No Time: 01/13/2025 Procedure: Colonoscopy Indications: High risk colon cancer surveillance: Personal history of colonic polyps Providers: Jamie Lara MD Referring MD: Jamie Lara MD Medicines: Monitored Anesthesia Care Complications: No immediate complications. Estimated Blood Loss: Estimated blood loss: none. Procedure: Pre-Anesthesia Assessment: - ASA Grade Assessment: II - A patient with mild systemic disease. - After reviewing the risks and benefits, the patient was deemed in satisfactory condition to undergo the procedure. After I obtained informed consent, the scope was passed under direct vision. Throughout the procedure, the patient's blood pressure, pulse, and oxygen saturations were monitored continuously.The Olympus Colonoscope was introduced through the anus and advanced to the cecum, identified by appendiceal orifice and ileocecal valve. The colonoscopy was performed without difficulty. The patient tolerated the procedure well. The quality of the bowel preparation was adequate. Findings: A 5 mm polyp was found in the hepatic flexure. The polyp was sessile. The polyp was removed with a cold snare. Resection and retrieval were complete. Estimated blood loss was minimal. Non-bleeding internal hemorrhoids were found during retroflexion. The hemorrhoids were medium-sized. The exam was otherwise without abnormality on direct and retroflexion views. Procedure Code(s): --- Professional --- 80846, Colonoscopy, flexible; with removal of tumor(s), polyp(s), or other lesion(s) by snare technique Diagnosis Code(s): --- Professional --- Z86.010, Personal history of colonic polyps D12.3, Benign neoplasm of transverse colon (hepatic flexure or splenic flexure) CPT copyright 2020 [employer]. All rights reserved. The codes documented in this report are preliminary and upon credit clerk review may be revised to meet current compliance requirements. Jamie Lara MD 01/13/2025 10:22:12 AM This report has been signed electronically.Jamie Lara MD Number of Addenda: 0 Note Initiated On: 01/13/2025 9:58 AM Scope In: Scope Out: Endoscopy Department at [facility] - [address] [place] [phone] Procedure Note Jamie Lara MD - 01/13/2025 [facility] GI Patient Name: Gilda Headley Procedure Date: 01/13/2025 9:58 AM Date of : 1960 Age: 64 Room: ROOM 14 Gender: Female Note Status: Finalized Attending MD: Jamie Lara MD, Procedure Date No Time: 01/13/2025 Procedure: Colonoscopy Indications: High risk colon cancer surveillance: Personalhistory of colonic polyps Providers: Jamie Lara MD Referring MD: Jamie Lara MD Medicines: Monitored Anesthesia Care Complications: No immediate complications. Estimated Blood Loss: Estimated blood loss: none. Procedure: Pre-Anesthesia Assessment: - ASA Grade Assessment: II - A patient with mild systemic disease. - After reviewing the risks and benefits, thepatient was deemed in satisfactory condition to undergo the procedure. After I obtained informed consent, the scope was passed under direct vision. Throughout theprocedure, the patient's blood pressure, pulse, and oxygen saturations were monitored continuously.The Olympus Colonoscope was introduced through the anus and advanced to the cecum, identified by appendiceal orifice and ileocecal valve. The colonoscopy was performed without difficulty. The patient tolerated the procedure well. The quality of the bowel preparation was adequate. Findings: A 5 mm polyp was found in the hepatic flexure. The polyp was sessile. The polyp was removed with acold snare. Resection and retrieval were complete. Estimated blood loss was minimal. Non-bleeding internal hemorrhoids were found during retroflexion. The hemorrhoids were medium-sized. The exam was otherwise without abnormality ondirect and retroflexion views. Procedure Code(s): --- Professional --- 62532, Colonoscopy, flexible; with removal of tumor(s), polyp(s), or other lesion(s) by snare technique Diagnosis Code(s): --- Professional --- Z86.010, Personal history of colonic polyps D12.3, Benign neoplasm of transverse colon (hepatic flexure or splenic flexure) CPT copyright 2020 [employer]. All rights reserved. The codes documented in this report are preliminary and upon credit clerk reviewmay be revised to meet current compliance requirements. Jamie Lara MD 01/13/2025 10:22:12 AM This report has been signed electronically.Jamie Lara MD Number of Addenda: 0 Note Initiated On: 01/13/2025 9:58 AM Scope In: Scope Out: Endoscopy Department at [facility] - [address] [place] [phone] IMPRESSION: - One 5 mm polyp at the hepatic flexure, removed with a cold snare. Resected and retrieved. - Non-bleeding internal hemorrhoids. - The examination was otherwise normal on directand retroflexion views. Recommendation: - Discharge patient to home. - Resume previous diet. - Continue present medications. - Await pathology results. - Repeat colonoscopy for surveillance based on pathology results. - Return to GI office PRN. us Jamie Lara MD GI~PROCEDURE ORDERABLES Final Result * (ABNORMAL) Lipid panel with reflex to direct LDL (11/15/2024 8:53 AM EST) Cholesterol 231(H) 0 - 200 mg/dL LAB CHEMISTRY METHOD 11/15/2024 12:19 PM EST [facility] Triglycerides 163(H) 0 - 150 mg/dL LAB CHEMISTRY METHOD 11/15/2024 12:19 PM EST [facility] HDL 52 >=40 mg/dL LAB CHEMISTRY METHOD 11/15/2024 12:19 PM EST [facility] LDL Calculated 146(H) 0 - 100 mg/dL LAB CHEMISTRY METHOD 11/15/2024 12:19 PM EST [facility] VLDL Cholesterol Julius 32.6 mg/dL LAB CHEMISTRY METHOD 11/15/2024 12:19 PM EST [facility] Non HDL Chol. (LDL+VLDL) 179(H) <145 mg/dL LAB CHEMISTRY METHOD 11/15/2024 12:19 PM [facility] Chol/HDL Ratio 4.4 0.0 - 4.4 LAB CHEMISTRY METHOD 11/15/2024 12:19 PM EST [facility] Blood Venous blood specimen / Unknown Venipuncture / Unknown 11/15/2024 8:53 AM EST 11/15/2024 8:53 AM EST Willian Farley MD LAB BLOOD ORDERABLES Final Res ult [facility] [address] [place] [address], [place] [phone] * Pap Smear (11/15/2014) Pap smear Refused, Abstracted Historical Provider HEALTH MAINTENANCE Final Result from Last 3 Months or Most Recently Relevant to Health Maintenance Insurance [facility] Care Teams Tubing Machine Tender Relationship Specialty Start Date End Date Willian Farley MD [address] [place] [id number] PCP - General Internal Medicine 11/14/24
== END 2025-09-11 08:56 | disposition home or self-care (01) ==
LOC: HO.HSM 08:45
PROVIDERS: PCP Internal Medicine; Referring Provider Internal Medicine; Visit Provider Registered Nurse
DX: G40.909 Epilepsy, unspecified, not intractable, without status epilepticus (principal)
CPT/HCPCS: 99213